=== PATIENT | female | born 1970 | race Caucasian/White ===

== ENCOUNTER → 2017-05-29 | Outpatient (CLI) | payer OTHER | LOC: RT 12:49 | PROVIDERS: ATTEND Nurse Practitioner Family | DX: M46.07 Spinal enthesopathy, lumbosacral region (principal) | CPT/HCPCS: 95910 ==

== ENCOUNTER → 2017-10-01 | Outpatient (CLI) | payer OTHER ==
--- NOTE | 2017-10-02 11:28 | MRI ---
HISTORY: Chronic low back pain, lumbar disc herniation Study: MRI lumbar spine without contrast Comparison: None Technique: Multisequence, multiplanar imaging of the lumbar spine was performed without the administration of IV contrast. Findings: Imaging of the lumbar spine demonstrates normal vertebral alignment. There is no spondylolisthesis. V ertebral body height is maintained throughout. No acute or chronic compression fracture is visualized . No suspicious bone marrow edema is identified. There is mild loss of disc space height at the L3-L4 , L4-5, and L5-S1 levels. Mild degenerative endplate changes are visualized at multiple levels within the lumbar spine as well. The conus terminates at the L2 level. Evaluation of the pre and paraverteb ral soft tissues is unremarkable. T12-L1: The T12-L1 level is unremarkable. L1-L2: At the L1-L2 level there is very mild facet hypertrophy without significant canal stenosis or neuroforaminal compromise. L2-L3: At the L2-L3 level there is facet hypertrophy without significant canal stenosis or neuroforam inal compromise. L3-L4: At the L3-L4 level there is a mild broad-based disc bulge as well as advanced facet hypertroph y, resulting in no significant canal stenosis or neuroforaminal compromise. L4-L5: At the L4-L5 level there is advanced facet hypertrophy and very mild lateral recess disc ridgi ng, resulting in mild neuroforaminal compromise on the left but no significant canal stenosis. L5-S1: At the L5-S1 level there is a small central disc protrusion superimposed upon mild broad based disc ridging as well as advanced facet hypertrophy, resulting in minimal neuroforaminal compromise o n the left but no significant canal stenosis. A small annular fissure is identified at this level as well. IMPRESSION: 1. Multilevel facet hypertrophy and multilevel mild degenerative disc disease, most significant at th e L4-L5 and L5-S1 levels, where there is minimal to mild neuroforaminal compromise on the left. 2. L5-S1 small annular fissure. Reported By:
--- NOTE | 2017-10-03 11:29 | MRI ---
MRI left knee without contrast Indication: Chronic left knee pain Technique: Multiplanar, multi sequence imaging of the left knee without IV contrast administration. Findings: The extensor mechanism is intact. The patellofemoral compartment demonstrates no chondral t hinning or subchondral marrow edema. The patella is well positioned within the femoral trochlea. The medial and lateral retinacular complexes are intact. Small suprapatellar joint effusion. Popliteal fo ssa is normal. No popliteus muscle or tendon tear. The pes anserine tendons are normal. The medial and lateral femorotibial compartment demonstrates no chondral thinning or subchondral bone marrow edema. No localizing bone marrow signal abnormality within the knee. The cruciate and collate ral ligaments are intact. The iliotibial band and biceps femoris are normal. There is no tear within the medial or lateral menisci. Impression: Normal left knee MRI. Reported By:
== END | disposition home or self-care (01) | DRG 554 ==
LOC: RAD 13:43
PROVIDERS: ATTEND Psychiatry & Neurology Neurology
DX: M17.10 Unilateral primary osteoarthritis, unspecified knee (principal); M51.16 Intervertebral disc disorders with radiculopathy, lumbar region; M51.37 Other intervertebral disc degeneration, lumbosacral region; K60.2 Anal fissure, unspecified
CPT/HCPCS: 72148; 73721